=== PATIENT | male | born 1985 | race Caucasian/White ===

== ENCOUNTER 2020-04-27 08:58 | Emergency (ER) | payer BC ==
--- NOTE | 2020-04-27 09:03 | EDM.PDOC ---
ED HPI GENERAL MEDICAL PROBLEM - General Chief Complaint: ENT Problem Stated Complaint: LEFT EAR PAIN Time Seen by Provider: 04/27/20 09:01 Source of Information: Reports: Patient, RN, RN Notes Reviewed History Limitations: Reports: No Limitations - History of Present Illness INITIAL COMMENTS - FREE TEXT/NARRATIVE: Pt presents to ER with c/o left ear pain x2 days with a muffled, plugged sensation. Denies drainage from the ear, cough, fever, chills, sore throat, or sinus sensation. Onset: Gradual Duration: Getting Worse Location: Reports: Other (Left ear) Quality: Reports: Ache Severity: Moderate Improves with: Reports: None Worsens with: Reports: None Associated Symptoms: Reports: No Other Symptoms left ear Pain Score (Numeric/FACES): 3 - Related Data Allergies Allergy/AdvReac Type Severity Reaction Status Date / Time No Known Allergies Allergy Verified 04/27/20 09:07 Home Meds: Home Meds . [No Known Home Meds] 04/27/20 [History] Past Medical History - Past Health History Medical/Surgical History: Denies Medical/Surgical History Social & Family History - Family History Family Medical History: Noncontributory - Living Situation & Occupation Living situation: Reports: with Family Occupation: Employed ED ROS ENT - Review of Systems Review Of Systems: Comprehensive ROS is negative, except as noted in HPI. ED EXAM, ENT - Physical Exam Exam: See Below Exam Limited By: No Limitations General Appearance: Alert, WD/WN, No Apparent Distress Eye Exam: Bilateral Eye: Normal Inspection Ears: Normal External Exam, Hearing Grossly Normal, Cerumen Impaction (Left), Other (Rt TM normal. Left ear TM clear after wax removal by RN.) Nose: Normal Inspection Mouth/Throat: Normal Inspection Head: Atraumatic, Normocephalic Neck: Normal Inspection, Supple, Non-Tender, Full Range of Motion Respiratory/Chest: No Respiratory Distress Neurological: Alert, Oriented, No Motor/Sensory Deficits Psychiatric: Normal Mood Skin: Warm, Dry Course - Vital Signs Last Recorded V/S: Last Vital Signs Temp 97.2 F 04/27/20 09:32 Pulse 75 04/27/20 09:32 Resp 16 04/27/20 09:32 BP 124/89 04/27/20 09:32 Pulse Ox 100 04/27/20 09:32 - Re-Assessments/Exams Free Text/Narrative Re-Assessment/Exam: 04/27/20 09:17 Left ear irrigated by RN. Departure - Departure Time of Disposition: 10:53 Disposition: Home, Self-Care 01 Condition: Good Clinical Impression: Impacted cerumen of left ear - Discharge Information *PRESCRIPTION DRUG MONITORING PROGRAM REVIEWED*: Not Applicable *COPY OF PRESCRIPTION DRUG MONITORING REPORT IN PATIENT [facility]ELSON: Not Applicable Instructions: Earwax Buildup, Adult Forms: ED Department Discharge Additional Instructions: Use over the counter Debrox ear drops to remove remaining wax. Follow up in clinic if needed. Sepsis Event Note (ED) - Focused Exam Vital Signs: Vital Signs Temp Pulse Resp BP Pulse Ox 04/27/20 09:32 97.2 F 75 16 124/89 100
== END 2020-04-27 11:00 | disposition home or self-care (01) ==
LOC: DL.ED 08:58
DX: H61.22 Impacted cerumen, left ear (principal)
CPT/HCPCS: 69209; 99282